=== PATIENT | female | born 1955 | race African-American/Black ===

== ENCOUNTER 2016-12-05 13:14 | Observation (INO) ==
[2016-12-05] MEDS ORDERED: ACETAMINOPHEN 325 MG TABLET PO PRN (15:44)
[2016-12-05] MEDS ORDERED: diphenhydrAMINE CAP 25 MG CAPSULE PO PRN (15:44)
[2016-12-05 16:48] VITALS: BP 136/80
[2016-12-05 17:09] LABS: Troponin I Only 0.066 NG/ML (0.00-0.045)
[2016-12-05] MEDS ORDERED: MAGNESIUM SULF RIDER 2 GM in PREMIX 1 EACH IV ONE (17:30)
[2016-12-05] MEDS ORDERED: POTASSIUM CHLORIDE 20 MEQ TABLET PO ONE (17:30)
--- NOTE | 2016-12-05 17:43 | Hospitalist History & Physical ---
<Mp Tompkins - Last Filed: 12/05/16 17:40> Assessment and Plan - Time spent with patient Time spent with patient: Greater than 30 minutes Time spent discussing smoking cessation with patient: 3 to 10 minutes (1) Elevated troponin I level Status: Acute Assessment and plan: Cardiac enzymes were elevated external facility. We will trend her troponins here. We will consult cardiology for possible stress test in a.m. (2) Chest pain Status: Acute Assessment and plan: Patient does not voice any current chest pain. However we will continue to monitor. 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 Patient is not currently anticoagulated. (4) Bradycardia Status: Acute (5) Tobacco abuse Status: Acute (6) Hypertension Status: Acute Assessment and plan: Continue home medications. History of Present Illness Chief complaint: chest pain History of present illness: Ms. Pablo is a 61 year old -[place] female who presents as a direct admit from [facility] for further evaluation of chest pain and elevated troponins. Per external facility records, the patient presented to [facility] last night with chest pain and was admitted for cardiac rule out. This morning, the patient's troponins were elevated trending 0.05-0.066. On exam here at [facility], the patient is lying awake, alert and oriented to person place and situation. She states that she had some leg pain, headache and a "little chest pain", other than that she is "good". Patient's speech is sporadic and diverting. She describes a lot of stress at home with her house situation as well as her children and grandchildren. She states that she feels as though the "Feds are out to get her". She denies current chest pain, pain on inspiration, shortness of breath, palpitations, syncopal events, lower extremity edema, and numbness or tingling. 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 We have accepted her to the hospital medicine service for further evaluation and cardiac rule out. We will consult cardiology for the possibility of stress test in a.m. Case has been discussed with Dr. Fontana, admitting physician. Patient is a full code. Home medications have been reviewed and reconciled per external facility records. Prior to completion of this note, the nurse alerted me that the patient has elected to leave AMA. Our plan was to proceed with a thorough cardiac workup including stress test and cardiology consultation. However, the patient has decided to leave against my recommendation. Home Medications Medication Instructions Recorded Confirmed Type ALPRAZolam [Alprazolam] 0.5 mg PO BID PRN 12/05/16 12/05/16 History Clopidogrel Bisulfate [Clopidogrel] 75 mg PO DAILY 12/05/16 12/05/16 History Hydrocodone/Acetaminophen 1 each PO Q4H PRN 12/05/16 12/05/16 History [Hydrocodon-Acetaminophn 10-325] cloNIDine HCl [Clonidine HCl] 0.2 mg PO BID 12/05/16 12/05/16 History hydroCHLOROthiazide 50 mg PO DAILY 12/05/16 12/05/16 History [Hydrochlorothiazide] metFORMIN [Glucophage] 250 mg PO BID W/MEALS 12/05/16 12/05/16 History Allergies Allergy/AdvReac Type Severity Reaction Status Date / Time No Known Allergies Allergy Verified 12/05/16 15:54 Medical,Surgical,& Family Hx - Medical History Cardio: History of: Hypertension Psychological: History of: Psychiatric Problems (undiagnosed but seems paranoid) Neurology: History of: Migraine, TIA Endocrine: History of: Diabetes Mellitus (IDDM), Dyslipidemia Respiratory: History of: Asthma Renal: History of: Renal Problems ("stent right kidney") Genitourinary: History of: Recurring Urinary Tract Infections Gastrointestinal: History of: GERD - Surgical History Cardiac Surgeries: Sugical HX of: Cardiac Catheterization Reproductive Surgeries: Surgical HX of;: Section - Social History Smoking Status: Current every day smoker Time spent discussing smoking cessation with patient: 3 to 10 minutes Frequency of Alcohol Use: None Type of Drug Use: None Marital Status: Single Lives With:: Children Functional capacity: uses cane/walker - Constitutional Constitutional: Absent: fatigue, fever(s), weakness - EENT Eyes: Absent: blurry vision, loss of vision - Cardiovascular Cardiovascular: Absent: chest pain at rest, chest pain with activity, dyspnea, edema - Respiratory Respiratory: Absent: cough, wheezing, pain on inspiration - Gastrointestinal Gastrointestinal: Absent: abdominal pain, nausea, vomiting - Genitourinary Genitourinary: Absent: dysuria, flank pain - Musculoskeletal Musculoskeletal: Present: arthralgias, other (leg pain) - Psychiatric Psychiatric: Present: difficulty concentrating - Endocrine Endocrine: Present: cold intolerance - Hematologic/Lymphatic Hematologic/Lymphatic: Absent: easy bleeding, easy bruising Exam - Constitutional Vitals: Period Temp Pulse Resp BP Sys/Haywood Pulse Ox Last 24 Hr 97.3 F 77 20 136/80 98 General appearance: normal weight, no acute distress - Head Head exam: Present: normal inspection, normocephalic, atraumatic - Eye Eye exam: Present: EOMI Pupils: Present: [place] - Neck Neck exam: Present: normal inspection. Absent: lymphadenopathy, tenderness - Respiratory Respiratory exam: Present: clear to auscultation bilaterally. Absent: rales, rhonchi, wheezes - Cardiovascular Cardiovascular exam: Present: bradycardia, irregular rhythm (atrial fibrillation ) - GI/Abdominal GI/Abdominal exam: Present: normal bowel sounds. Absent: distended, mass, tenderness, rebound - Extremities Exam Extremities exam: Present: normal inspection. Absent: calf tenderness, edema - Neurological Exam Neurological exam: Present: alert, oriented X3, reflexes normal - Psychiatric Psychiatric exam: Present: agitated, other (paranoid) - Skin Skin exam: Present: normal color, warm, dry, intact <White,Arin R - Last Filed: 12/05/16 21:08> Assessment and Plan (1) Atrial fibrillation Status: Acute (2) Chest pain Status: Acute (3) Elevated troponin I level Status: Acute (4) Hypertension Status: Acute (5) Tobacco abuse Status: Acute Assessment and plan: refused nicotine patch (6) Depression Status: Acute Assessment and plan: hostile, and quickly changes subjects. History of Present Illness History of present illness: Ms. Pablo is a 61 year old female seen and examined. Agree with above, poor historian, will not answer most of your questions, easily becomes hostile during interview. 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 Medical,Surgical,& Family Hx - Family History Family History: Denies;: Family Diabetes, Family Heart Disease Exam - Constitutional Vitals: Period Temp Pulse Resp BP Sys/Haywood Pulse Ox Last 24 Hr 97.3 F 77 20 136/80 98 - Eye Eye exam: Absent: scleral icterus Pupils: Present: normal accommodation - ENT ENT exam: Present: normal exam, normal external ear exam - Neurological Exam Neurological exam: Absent: motor sensory deficit Results - Labs Labs: labs reviewed need to be scanned in chart, elevated troponin of 0.06
[2016-12-05 17:45] LABS: PT Patient Result 10.9 SECS; Partial Thromboplastin Time 26.8 SECS (0-40)
[2016-12-05] MEDS ORDERED: POTASSIUM CHLORIDE INJ 40 MEQ in SODIUM CHLORIDE 0.45% 1,000 ML IV SCH (18:00)
[2016-12-05] MEDS ORDERED: cefTRIAXone 1,000 MG in SODIUM CHLORIDE 0.9% 100 ML IV SCH (18:00)
[2016-12-05 18:02] LABS: Alanine Aminotransferase 49 U/L (13-56); Albumin 3.5 G/DL (3.4-5.0); Alkaline Phosphatase 74 U/L (45-117); Aspartate Amino Transferase 26 U/L (0-37); Bilirubin,Indirect 0.3 MG/DL (0.0-1.0); Bilirubin,Total < 0.39 MG/DL (0.2-1.0); Total Protein 6.5 G/DL (6.4-8.3)
[2016-12-05] MEDS ORDERED: ALBUTEROL/IPRATROPIUM 3 ML NEB RESP TX SCH (19:00)
--- NOTE | 2016-12-05 21:19 | Discharge Summary ---
Hospital Course - Hospital Course Hospital Course: 61-year-old -Togol[place] female admitted for chest pain from [facility]. Patient had some mild elevation in her troponins. We have consulted cardiology to see her and recommend with her she needed a stress test. Patient' s family arrived and patient refused to stay. Family was informed the patient was in atrial fib and that she needed a cardiac workup for her elevated troponin. Family made aware of risk of heart attack and stroke. Patient signed out AMA and the family took her home. - Time spent with patient Time with patient DS: Less than 30 minutes Diagnosis - Discharge Diagnosis (1) Atrial fibrillation Status: Acute (2) Chest pain Status: Acute (3) Elevated troponin I level Status: Acute (4) Hypertension Status: Acute (5) Tobacco abuse Status: Acute (6) Depression Status: Acute Discharge Plan - Discharge Data Disposition: Left Against Medical Advice - Discharge Medications No Action Clopidogrel Bisulfate [Clopidogrel] 75 mg PO DAILY metFORMIN [Glucophage] 250 mg PO BID W/MEALS ALPRAZolam [Alprazolam] 0.5 mg PO BID PRN PRN Reason: Anxiety hydroCHLOROthiazide [Hydrochlorothiazide] 50 mg PO DAILY cloNIDine HCl [Clonidine HCl] 0.2 mg PO BID Hydrocodone/Acetaminophen [Hydrocodon-Acetaminophn 10-325] 1 each PO Q4H PRN PRN Reason: Pain - Follow Up or Referral - Forms/Instructions Exam - Constitutional Vitals: Period Temp Pulse Resp BP Sys/Haywood Pulse Ox Last 24 Hr 97.3 F 77 20 136/80 98 Discharge Results Labs on day of discharge: Labs from last 24 hours 12/05/16 12/05/16 12/05/16 16:05 16:03 16:03 INR 1.0 PT Patient/Control Mix 10.9 Circ Anticoag PTT 26.8 Total Bilirubin < 0.39 Direct Bilirubin 0.10 Indirect Bilirubin 0.3 AST 26 ALT 49 Alkaline Phosphatase 74 Total Creatine Kinase 146 CK-MB (CK-2) 1.7 Troponin I 0.066 H Total Protein 6.5 Albumin 3.5 DS: Provider Date of admission: 12/05/16 15:03 Primary care physician: Cheryl Arora MD Attending physician on admission: Cheryl Arora MD Consults: 12/05/16 15:54 Consult to Dietitian [CONS] Routine Reason for Dietitian: Other 12/05/16 15:59 Consult to Case Mgmt/Social Srvs [CONS] Routine Reason for Case Mgmt/Social Srvs: Psychiatric Management 12/05/16 17:28 Consult to Physician [CONS] Routine Comment: afib, la, positive troponins, crazy Consulting Provider: Edison Rene Discharging clinician: Arin Fontana MD
[2016-12-06] MEDS ORDERED: PANTOPRAZOLE 40 MG TABLET PO SCH (09:00)
== END 2016-12-05 18:25 | disposition left against medical advice (07) | DRG 203 ==
LOC: SUATTDRO 15:03 → N.TELEN 15:03 → INTOOBSV 15:03
PROVIDERS: ADMIT Family Medicine; ATTEND Internal Medicine

== ENCOUNTER 2017-04-26 08:21 | Inpatient (IN) ==
[2017-04-26] MEDS ORDERED: KETOROLAC 30 MG/1 ML VIAL IV STA (08:53)
[2017-04-26] MEDS ORDERED: KETOROLAC 30 MG/1 ML VIAL ONE (08:54)
[2017-04-26 10:01] LABS: Alanine Aminotransferase 17 U/L (13-56); Albumin 3.4 G/DL (3.4-5.0); Alkaline Phosphatase 105 U/L (45-117); Aspartate Amino Transferase 11 U/L (0-37); Bilirubin,Total < 0.39 MG/DL (0.2-1.0); Blood Urea Nitrogen 12 MG/DL (7-18); Calcium 8.9 MG/DL (8.5-10.1); Glucose 78 MG/DL (74-106); Osmolality,Calculated 273.7 MOS/KG (273-304); Potassium 3.9 MMOL/L (3.5-5.1); Sodium 138 MMOL/L (136-145); Total Protein 7.2 G/DL (6.4-8.3)
[2017-04-26 10:04] LABS: Troponin I Only 0.088 NG/ML (0.00-0.045)
[2017-04-26] MEDS ORDERED: ASPIRIN 325 MG TABLET PO STA (10:22)
[2017-04-26] MEDS ORDERED: NITROGLYCERIN SL 0.4 MG TABLET SL STA (10:22)
[2017-04-26] MEDS ORDERED: ENOXAPARIN 40 MG/0.4 ML SYRINGE SUBCUT STA (10:23)
[2017-04-26] MEDS ORDERED: ONDANSETRON 4 MG/2 ML VIAL IV PRN (11:06)
[2017-04-26] MEDS ORDERED: MAGNESIUM SULF RIDER 4 GM in PREMIX 1 EACH IV PRN (11:06)
[2017-04-26] MEDS ORDERED: MAGNESIUM SULF RIDER 2 GM in PREMIX 1 EACH IV PRN (11:06)
[2017-04-26] MEDS ORDERED: DEXTROSE 50% 25 GM/50 ML VIAL IV PRN (11:06)
[2017-04-26] MEDS ORDERED: POTASSIUM CHLORIDE 20 MEQ TABLET PO PRN (11:06)
[2017-04-26] MEDS ORDERED: GLUCAGON 1 MG VIAL IM PRN (11:06)
[2017-04-26] MEDS ORDERED: ALPRAZolam 0.5 MG TABLET PO PRN (11:10)
[2017-04-26] MEDS ORDERED: NON-FORMULARY MEDICATION (Albuterol Inhaler 2 PUFF) INH PRN (11:10)
[2017-04-26] MEDS ORDERED: NITROGLYCERIN SL 0.4 MG TABLET SL PRN (11:10)
[2017-04-26] MEDS ORDERED: ALBUTEROL 2.5 MG/3 ML NEB RESP TX PRN (11:10)
[2017-04-26] MEDS: INSULIN REGULAR 100 UNIT/ML SUBCUT SCH ×3 (13:52→20:55)
[2017-04-26] MEDS: NICOTINE 14 MG/24 HR PATCH TRANSDERM SCH ×2 (13:57→14:44)
[2017-04-26] MEDS: NITROGLYCERIN 2% OINT 1 INCH/GM PACK TOP SCH ×3 (14:45→23:31)
[2017-04-26] MEDS: SODIUM CHLORIDE 0.45% 1,000 ML IV SCH (14:46)
[2017-04-26] MEDS: metFORMIN 500 MG TABLET PO SCH (18:29)
[2017-04-26] MEDS: ATORVASTATIN 20 MG TABLET PO SCH (20:54)
[2017-04-26] MEDS: BUDESONIDE/FORMOTEROL 160-4.5 INHALER 6 GM INH SCH (20:54)
[2017-04-26] MEDS: CARVEDILOL 3.125 MG TABLET PO SCH (20:55)
[2017-04-27] MEDS: MORPHINE 2 MG/1 ML SYRINGE IV PRN ×3 (02:45→21:32)
[2017-04-27 05:41] LABS: Basophils % 0.5 % (0.0-0.8); Eosinophils # 0.1 10*3/uL (0.0-0.87); Eosinophils % 0.9 % (0.00-10.9); Hemoglobin 13.2 GM/DL (12.0-16.0); Immature Granulocytes % 0.4 %; Immature Granulocytes Absolute 0.03 #; Lymphocytes # 2.3 10*3/uL (1.4-4.0); Lymphocytes % 27.6 % (21.3-54.2); Mean Corpuscular HGB Conc 34.7 GM/DL (32-36); Mean Corpuscular Hemoglobin 32 PG (27-34); Mean Corpuscular Volume 92.9 FL (87-102); Mean Platelet Volume 10.2 FL (9.6-12.0); Monocytes # 0.5 10*3/uL (0.11-0.8); Monocytes % 6.4 % (1.7-12.7); Neutrophils # 5.3 10*3/uL (1.4-7.4); Neutrophils % 64.2 % (38.7-73.9); Platelet Count 347 T/CUMM (130-400); Red Blood Count 4.09 MC/CUMM (3.8-5.5); Red Cell Distribution Width 12.6 % (9.3-17.3); White Blood Count 8.2 T/CUMM (4-12)
[2017-04-27] MEDS: NITROGLYCERIN 2% OINT 1 INCH/GM PACK TOP SCH ×3 (06:01→18:18)
[2017-04-27 06:16] LABS: Osmolality,Calculated 278.7 MOS/KG (273-304); Potassium 4.3 MMOL/L (3.5-5.1); Risk Ratio 2.01; VLDL CHOLESTEROL 20.6 MG/DL
[2017-04-27] MEDS: INSULIN REGULAR 100 UNIT/ML SUBCUT SCH ×4 (08:14→22:17)
[2017-04-27] MEDS ORDERED: ASPIRIN EC 325 MG TABLET PO SCH (09:00)
[2017-04-27] MEDS: ENOXAPARIN 40 MG/0.4 ML SYRINGE SUBCUT SCH ×2 (10:04→21:31)
[2017-04-27] MEDS: hydroCHLOROthiazide 25 MG TABLET PO SCH (10:05)
[2017-04-27] MEDS: NICOTINE 14 MG/24 HR PATCH TRANSDERM SCH (10:05)
[2017-04-27] MEDS: CLOPIDOGREL 75 MG TABLET PO SCH (10:05)
[2017-04-27] MEDS: PANTOPRAZOLE 40 MG TABLET PO SCH (10:06)
[2017-04-27] MEDS: ASPIRIN CHEW 81 MG TABLET PO SCH (10:06)
[2017-04-27] MEDS: CARVEDILOL 3.125 MG TABLET PO SCH ×2 (10:06→16:12)
[2017-04-27] MEDS: BUDESONIDE/FORMOTEROL 160-4.5 INHALER 6 GM INH SCH ×2 (10:06→22:17)
[2017-04-27] MEDS: cloNIDine 0.1 MG TABLET PO SCH (10:06)
[2017-04-27] MEDS: metFORMIN 500 MG TABLET PO SCH ×2 (10:06→16:12)
[2017-04-27] MEDS: SODIUM CHLORIDE 0.45% 1,000 ML IV SCH (16:12)
[2017-04-27] MEDS ORDERED: ENOXAPARIN 40 MG/0.4 ML SYRINGE SUBCUT SCH (21:00)
[2017-04-27] MEDS: ATORVASTATIN 20 MG TABLET PO SCH (21:32)
[2017-04-28] MEDS: NITROGLYCERIN 2% OINT 1 INCH/GM PACK TOP SCH ×4 (01:37→17:25)
[2017-04-28] MEDS ORDERED: MAGNESIUM SULF RIDER 2 GM in PREMIX 1 EACH IV PRN (06:04)
[2017-04-28] MEDS ORDERED: DIAZEPAM 5 MG TABLET PO ONE (06:04)
[2017-04-28] MEDS ORDERED: POTASSIUM CHLORIDE RIDER 10 MEQ in PREMIX 1 EACH IV PRN (06:04)
[2017-04-28] MEDS ORDERED: diphenhydrAMINE CAP 25 MG CAPSULE PO ONE (06:04)
[2017-04-28] MEDS ORDERED: LIDOCAINE 2%/EPI 20 ML VIAL ONE (06:52)
[2017-04-28] MEDS ORDERED: HEPARIN/NACL 0.9% 2 UNITS/ML 2,000 ML IV ONE (06:52)
[2017-04-28] MEDS: CLOPIDOGREL 75 MG TABLET PO SCH ×2 (07:03→10:53)
[2017-04-28] MEDS: ASPIRIN CHEW 81 MG TABLET PO SCH ×2 (07:04→09:23)
[2017-04-28] MEDS: PANTOPRAZOLE 40 MG TABLET PO SCH (09:19)
[2017-04-28] MEDS: hydroCHLOROthiazide 25 MG TABLET PO SCH (09:19)
[2017-04-28] MEDS: CARVEDILOL 3.125 MG TABLET PO SCH ×2 (09:20→16:55)
[2017-04-28] MEDS: cloNIDine 0.1 MG TABLET PO SCH (09:20)
[2017-04-28] MEDS: NICOTINE 14 MG/24 HR PATCH TRANSDERM SCH (09:20)
[2017-04-28] MEDS: INSULIN REGULAR 100 UNIT/ML SUBCUT SCH ×4 (09:21→21:43)
[2017-04-28] MEDS: BUDESONIDE/FORMOTEROL 160-4.5 INHALER 6 GM INH SCH ×2 (09:22→21:11)
[2017-04-28] MEDS: SODIUM CHLORIDE 0.45% 1,000 ML IV SCH (09:23)
[2017-04-28] MEDS: metFORMIN 500 MG TABLET PO SCH ×2 (09:24→16:55)
[2017-04-28] MEDS: ENOXAPARIN 40 MG/0.4 ML SYRINGE SUBCUT SCH ×2 (10:58→22:08)
[2017-04-28] MEDS: ATORVASTATIN 20 MG TABLET PO SCH (21:11)
[2017-04-29] MEDS: NITROGLYCERIN 2% OINT 1 INCH/GM PACK TOP SCH ×4 (02:23→17:11)
[2017-04-29] MEDS: SODIUM CHLORIDE 0.45% 1,000 ML IV SCH (04:07)
[2017-04-29 06:06] LABS: Basophils # 0.1 10*3/uL (0.0-0.2); Basophils % 0.6 % (0.0-0.8); Eosinophils # 0.1 10*3/uL (0.0-0.87); Hematocrit 40.8 VOL% (35.7-47.0); Hemoglobin 13.7 GM/DL (12.0-16.0); Immature Granulocytes % 0.3 %; Immature Granulocytes Absolute 0.02 #; Lymphocytes % 37.7 % (21.3-54.2); Mean Corpuscular HGB Conc 33.6 GM/DL (32-36); Mean Corpuscular Hemoglobin 32 PG (27-34); Mean Corpuscular Volume 94.2 FL (87-102); Mean Platelet Volume 10.1 FL (9.6-12.0); Monocytes # 0.6 10*3/uL (0.11-0.8); Monocytes % 7.6 % (1.7-12.7); Neutrophils # 4.2 10*3/uL (1.4-7.4); Neutrophils % 52.8 % (38.7-73.9); Platelet Count 363 T/CUMM (130-400); Red Blood Count 4.33 MC/CUMM (3.8-5.5); Red Cell Distribution Width 12.4 % (9.3-17.3); White Blood Count 7.9 T/CUMM (4-12)
[2017-04-29 06:14] LABS: PT Patient Result 10.8 SECS
[2017-04-29 06:37] LABS: Calcium 9.8 MG/DL (8.5-10.1)
[2017-04-29 06:38] LABS: Osmolality,Calculated 276.5 MOS/KG (273-304)
[2017-04-29] MEDS ORDERED: diphenhydrAMINE CAP 25 MG CAPSULE PO ONE (07:19)
[2017-04-29] MEDS ORDERED: DIAZEPAM 5 MG TABLET PO ONE (07:19)
[2017-04-29] MEDS ORDERED: LIDOCAINE 2%/EPI 20 ML VIAL ONE (07:23)
[2017-04-29] MEDS ORDERED: HEPARIN/NACL 0.9% 2 UNITS/ML 2,000 ML IV ONE (07:23)
[2017-04-29] MEDS: ENOXAPARIN 40 MG/0.4 ML SYRINGE SUBCUT SCH ×3 (07:28→21:30)
[2017-04-29] MEDS: ASPIRIN CHEW 81 MG TABLET PO SCH ×2 (07:28→08:22)
[2017-04-29] MEDS: cloNIDine 0.1 MG TABLET PO SCH ×2 (07:28→08:22)
[2017-04-29] MEDS: CARVEDILOL 3.125 MG TABLET PO SCH ×2 (07:28→16:15)
[2017-04-29] MEDS: CLOPIDOGREL 75 MG TABLET PO SCH ×2 (07:28→08:23)
[2017-04-29] MEDS: PANTOPRAZOLE 40 MG TABLET PO SCH ×2 (07:28→08:23)
[2017-04-29] MEDS: metFORMIN 500 MG TABLET PO SCH ×2 (07:32→16:14)
[2017-04-29] MEDS: INSULIN REGULAR 100 UNIT/ML SUBCUT SCH ×4 (07:32→21:31)
[2017-04-29] MEDS ORDERED: MIDAZOLAM 2 MG/2 ML VIAL ONE (07:53)
[2017-04-29] MEDS ORDERED: fentaNYL 100 MCG/2 ML VIAL ONE (07:54)
[2017-04-29] MEDS: NICOTINE 14 MG/24 HR PATCH TRANSDERM SCH ×2 (08:22→09:22)
[2017-04-29] MEDS: hydroCHLOROthiazide 25 MG TABLET PO SCH (08:22)
[2017-04-29] MEDS: BUDESONIDE/FORMOTEROL 160-4.5 INHALER 6 GM INH SCH ×2 (09:22→20:56)
[2017-04-29] MEDS ORDERED: CEFUROXIME INJ 1,500 MG in SYRINGE 1 EACH IV ONE (12:23)
[2017-04-29] MEDS: CHLORHEXIDINE 4% SOLN 118 ML BOTTLE TOP SCH (15:00)
[2017-04-29] MEDS: SODIUM CHLORIDE 0.9% 1,000 ML IV SCH (15:01)
[2017-04-29] MEDS: ATORVASTATIN 20 MG TABLET PO SCH (20:55)
[2017-04-29] MEDS: RANOLAZINE 500 MG TABLET PO SCH (20:55)
[2017-04-29] MEDS ORDERED: CHLORHEXIDINE 0.12% ORAL RINSE 60 ML BOTTLE SWISH/SPIT SCH (21:00)
[2017-04-30] MEDS: NITROGLYCERIN 2% OINT 1 INCH/GM PACK TOP SCH ×2 (02:13→07:15)
[2017-04-30] MEDS ORDERED: CEFUROXIME INJ 1,500 MG in SYRINGE 1 EACH IV ONE (06:00)
[2017-04-30] MEDS: INSULIN REGULAR 100 UNIT/ML SUBCUT SCH ×4 (10:41→20:29)
[2017-04-30] MEDS: ENOXAPARIN 40 MG/0.4 ML SYRINGE SUBCUT SCH (10:46)
[2017-04-30] MEDS: hydroCHLOROthiazide 25 MG TABLET PO SCH (10:47)
[2017-04-30] MEDS: NICOTINE 14 MG/24 HR PATCH TRANSDERM SCH (10:47)
[2017-04-30] MEDS: PANTOPRAZOLE 40 MG TABLET PO SCH (10:48)
[2017-04-30] MEDS: RANOLAZINE 500 MG TABLET PO SCH ×2 (10:48→21:02)
[2017-04-30] MEDS: cloNIDine 0.1 MG TABLET PO SCH (10:49)
[2017-04-30] MEDS: metFORMIN 500 MG TABLET PO SCH ×2 (10:49→19:11)
[2017-04-30] MEDS: ASPIRIN CHEW 81 MG TABLET PO SCH (10:52)
[2017-04-30] MEDS: CARVEDILOL 6.25 MG TABLET PO SCH ×2 (10:52→19:11)
[2017-04-30] MEDS: BUDESONIDE/FORMOTEROL 160-4.5 INHALER 6 GM INH SCH ×2 (10:57→21:02)
[2017-04-30] MEDS ORDERED: NITROGLYCERIN 2% OINT 1 INCH/GM PACK TOP SCH (11:06)
[2017-04-30] MEDS: SODIUM CHLORIDE 0.9% 1,000 ML IV SCH (13:01)
[2017-04-30] MEDS: NITROGLYCERIN DRIP 50 MG/250 ML BOTTLE IV SCH (14:39)
[2017-04-30] MEDS: HEPARIN DRIP 25,000 UNITS/500 ML PREMIX IV SCH (16:09)
[2017-04-30] MEDS ORDERED: SODIUM CHLORIDE 0.9% 1,000 ML IV PRN (16:22)
[2017-04-30] MEDS: ATORVASTATIN 20 MG TABLET PO SCH (21:02)
[2017-04-30] MEDS ORDERED: HEPARIN 5,000 UNIT/1 ML VIAL SUBCUT ONE (23:33)
[2017-05-01 05:07] LABS: Basophils # 0.1 10*3/uL (0.0-0.2); Basophils % 0.6 % (0.0-0.8); Eosinophils # 0.2 10*3/uL (0.0-0.87); Eosinophils % 2.3 % (0.00-10.9); Hematocrit 36.4 VOL% (35.7-47.0); Hemoglobin 12.8 GM/DL (12.0-16.0); Immature Granulocytes % 0.3 %; Immature Granulocytes Absolute 0.03 #; Lymphocytes # 2.5 10*3/uL (1.4-4.0); Lymphocytes % 25.6 % (21.3-54.2); Mean Corpuscular HGB Conc 35.2 GM/DL (32-36); Mean Corpuscular Hemoglobin 33 PG (27-34); Mean Corpuscular Volume 92.4 FL (87-102); Monocytes # 0.7 10*3/uL (0.11-0.8); Monocytes % 7.2 % (1.7-12.7); Neutrophils # 6.3 10*3/uL (1.4-7.4); Platelet Count 329 T/CUMM (130-400); Red Blood Count 3.94 MC/CUMM (3.8-5.5); Red Cell Distribution Width 12.4 % (9.3-17.3); White Blood Count 9.9 T/CUMM (4-12)
[2017-05-01 06:04] LABS: Osmolality,Calculated 278.5 MOS/KG (273-304); Potassium 3.9 MMOL/L (3.5-5.1)
[2017-05-01] MEDS ORDERED: CEFUROXIME INJ 1,500 MG in SYRINGE 1 EACH IV ONE ×2 (08:19→12:00)
[2017-05-01] MEDS: CARVEDILOL 6.25 MG TABLET PO SCH (08:20)
[2017-05-01] MEDS ORDERED: VANCOMYCIN 1,000 MG VIAL ONE (08:23)
[2017-05-01] MEDS ORDERED: PAPAVERINE 60 MG/2 ML VIAL ONE (08:23)
[2017-05-01] MEDS ORDERED: CEFUROXIME 1,500 MG VIAL ONE (08:24)
[2017-05-01] MEDS ORDERED: SODIUM CHLORIDE 0.9% 1,000 ML IV SCH (08:30)
[2017-05-01] MEDS: metFORMIN 500 MG TABLET PO SCH (08:45)
[2017-05-01] MEDS: INSULIN REGULAR 100 UNIT/ML SUBCUT SCH ×2 (08:45→11:01)
[2017-05-01] MEDS: cloNIDine 0.1 MG TABLET PO SCH (08:47)
[2017-05-01] MEDS: ASPIRIN CHEW 81 MG TABLET PO SCH (08:47)
[2017-05-01] MEDS: NICOTINE 14 MG/24 HR PATCH TRANSDERM SCH (08:48)
[2017-05-01] MEDS: hydroCHLOROthiazide 25 MG TABLET PO SCH (08:48)
[2017-05-01] MEDS ORDERED: TRANEXAMIC ACID 1,000 MG/10 ML VIAL IV ONE (08:48)
[2017-05-01] MEDS: BUDESONIDE/FORMOTEROL 160-4.5 INHALER 6 GM INH SCH (08:49)
[2017-05-01] MEDS: RANOLAZINE 500 MG TABLET PO SCH (08:49)
[2017-05-01] MEDS: PANTOPRAZOLE 40 MG TABLET PO SCH (08:49)
[2017-05-01] MEDS ORDERED: CHLORHEXIDINE 4% SOLN 118 ML BOTTLE TOP SCH ×2 (09:00)
[2017-05-01] MEDS ORDERED: CHLORHEXIDINE 0.12% ORAL RINSE 60 ML BOTTLE SWISH/SPIT SCH ×2 (09:00)
[2017-05-01] MEDS ORDERED: POTASSIUM CHLORIDE RIDER 100 ML IV ONE (09:07)
[2017-05-01] MEDS ORDERED: ALBUMIN 5% 12.5 GM/250 ML VIAL IV ONE (09:11)
[2017-05-01] MEDS ORDERED: SODIUM BICARBONATE 50 MEQ/50 ML SYRINGE IV ONE ×2 (09:11→14:54)
[2017-05-01 10:30] LABS: ABG Base Excess -0.9 MMOL/L (-2.5-2.5); ABG HCO3 23.7 MMOL/L (20-26); ABG PCO2 29.9 MM HG (35-48); ABG PH 7.473 (7.35-7.45); ABG TCO2 19.6 MMOL/L (23-27); Glucose Heart Surgery 144 MG/DL (74-106); Hematocrit Heart Surgery 33.6 PERCENT (37-47); Hemoglobin Heart Surgery 10.9 G/DL (12.0-16.0); Ionized Calcium Arterial 1.14 MMOL/L (1.21-1.46); PCO2 Patient Temp Arterial 29.9 MMHG; PH Patient Temp Arterial 7.473; Patient Temperature 37 CELCIUS; Potassium Heart/CVR 3.2 MMOL/L (3.5-5.1); Sodium Heart/CVR 135 MMOL/L (135-145)
[2017-05-01] MEDS ORDERED: TISSUE ADHESIVE 1 EACH APPLICATOR TOP ONE (10:49)
[2017-05-01 11:04] LABS: Apearance,Urine Slightly Hazy (Clear); Bilirubin,Urine Negative (Negative); Blood, Urine Large mg/dL (Negative); Glucose,Urine (UA) Negative (Negative); Ketones,Urine Negative (Negative); Nitrite,Urine Negative (Negative); Protein,Urine 30 MG/DL; RBC,Urine 1933 /HPF (0-4); Squamous Epithelial Cell,Urine Occasional /HPF (0-10); Urine Color Yellow (Yellow); Urine Urobilinogen < 2.0 EU/DL (0.2-1.0); WBC,Urine 6 /HPF (0-6)
[2017-05-01 11:42] LABS: Hematocrit Heart Surgery 21.4 PERCENT (37-47); Hemoglobin Heart Surgery 6.9 G/DL (12.0-16.0); PCO2 Patient Temp Venous 34.7 MM HG; PH Patient Temp Venous 7.458; PO2 Patient Temp Venous 43.3 MM HG; Potassium Heart/CVR 4.5 MMOL/L (3.5-5.1); VBG Base Excess 0.9 MEQ/L (0-4); VBG Oxygen Saturation 80.7 %; VBG PCO2 34.7 MMHG (41-51); VBG PH 7.458; VBG PO2 43.3 MMHG (17-40)
[2017-05-01] MEDS ORDERED: INSULIN REGULAR 100 UNIT/ML ONE (11:58)
[2017-05-01 12:17] LABS: Hematocrit Heart Surgery 26.5 PERCENT (37-47); Hemoglobin Heart Surgery 8.5 G/DL (12.0-16.0); PCO2 Patient Temp Venous 30.6 MM HG; PH Patient Temp Venous 7.488; Potassium Heart/CVR 4.4 MMOL/L (3.5-5.1); VBG Base Excess 0.3 MEQ/L (0-4); VBG HCO3 24.6 MEQ/L (24-28); VBG Oxygen Saturation 85.9 %; VBG PCO2 30.6 MMHG (41-51); VBG PH 7.488
[2017-05-01] MEDS ORDERED: DOBUTamine 500 MG/250 ML PREMIX IV ONE (12:17)
[2017-05-01 13:13] LABS: ABG Base Excess -0.9 MMOL/L (-2.5-2.5); ABG HCO3 23.4 MMOL/L (20-26); ABG Oxygen Saturation 98.6 % (95-100); ABG PH 7.418 (7.35-7.45); ABG PO2 236.7 MM HG (80-95); ABG TCO2 24.5 MMOL/L (23-27); Glucose Heart Surgery 119 MG/DL (74-106); Hemoglobin Heart Surgery 9.6 G/DL (12.0-16.0); Ionized Calcium Arterial 1.09 MMOL/L (1.21-1.46); PH Patient Temp Arterial 7.418; PO2 Patient Temp Arterial 236.7 MM HG; Patient Temperature 37 CELCIUS; Potassium Heart/CVR 3.1 MMOL/L (3.5-5.1); Sodium Heart/CVR 137 MMOL/L (135-145)
[2017-05-01] MEDS ORDERED: PHENYLEPHRINE DRIP 40 MG/250 ML PREMIX IV ONE (13:46)
[2017-05-01] MEDS: SODIUM CHLORIDE 0.45% 1,000 ML IV SCH ×2 (14:00)
[2017-05-01] MEDS ORDERED: SUFentanil 250 MCG/5 ML AMP ONE (14:19)
[2017-05-01] MEDS ORDERED: MIDAZOLAM 10 MG/2 ML VIAL ONE (14:20)
[2017-05-01] MEDS ORDERED: CALCIUM CHLORIDE 1,000 MG/10 ML VIAL IV ONE (14:24)
[2017-05-01] MEDS ORDERED: SEVOFLURANE 1 UNIT/15 MINUTE INH ONE (14:24)
[2017-05-01] MEDS ORDERED: HEPARIN/NACL 0.9% 2 UNITS/ML 1,000 ML IV ONE (14:24)
[2017-05-01] MEDS ORDERED: EPINEPHrine 1 MG/ML VIAL ONE (14:24)
[2017-05-01] MEDS ORDERED: MINERAL OIL/PETROLATUM OPH OINT 3.5 GM TUBE ONE (14:25)
[2017-05-01] MEDS ORDERED: VECURONIUM 10 MG VIAL IV ONE (14:25)
[2017-05-01] MEDS ORDERED: ETOMIDATE 40 MG/20 ML VIAL IV ONE (14:25)
[2017-05-01] MEDS ORDERED: ESMOLOL 100 MG/10 ML VIAL IV ONE (14:26)
[2017-05-01] MEDS ORDERED: LACTATED RINGERS 1,000 ML IV ONE (14:26)
[2017-05-01] MEDS ORDERED: SODIUM CHLORIDE 0.9% 1,000 ML IV ONE (14:26)
[2017-05-01] MEDS ORDERED: NITROGLYCERIN DRIP 50 MG/250 ML BOTTLE IV ONE (14:26)
[2017-05-01] MEDS ORDERED: PHENYLEPHRINE DRIP 20 MG/250 ML PREMIX IV ONE ×2 (14:26→14:54)
[2017-05-01] MEDS ORDERED: SODIUM CHLORIDE 0.9% 250 ML IV ONE (14:26)
[2017-05-01] MEDS ORDERED: SODIUM CHLORIDE 0.9% 200 ML IV ONE (14:26)
[2017-05-01] MEDS: NITROGLYCERIN DRIP 50 MG/250 ML BOTTLE IV SCH ×2 (14:30→17:56)
[2017-05-01] MEDS ORDERED: MAGNESIUM SULF RIDER 2 GM in PREMIX 1 EACH IV PRN (14:45)
[2017-05-01] MEDS ORDERED: POTASSIUM CHLORIDE RIDER 20 MEQ in PREMIX 1 EACH IV PRN (14:45)
[2017-05-01] MEDS ORDERED: CHLORHEXIDINE 4% SOLN 118 ML BOTTLE TOP PRN (14:45)
[2017-05-01] MEDS ORDERED: ACETAMINOPHEN 650 MG SUPP RECTAL PRN (14:45)
[2017-05-01] MEDS ORDERED: INSULIN REGULAR 100 UNIT/ML IV PRN (14:45)
[2017-05-01] MEDS ORDERED: CALCIUM CHLORIDE 1,000 MG/10 ML SYRINGE IV PRN (14:45)
[2017-05-01] MEDS ORDERED: MAGNESIUM SULF RIDER 4 GM in PREMIX 1 EACH IV PRN (14:45)
[2017-05-01] MEDS ORDERED: SODIUM CHLORIDE 0.9% 250 ML IV PRN (14:45)
[2017-05-01] MEDS ORDERED: POTASSIUM CHLORIDE RIDER 10 MEQ in PREMIX 1 EACH IV PRN (14:45)
[2017-05-01] MEDS ORDERED: DEXTROSE 50% 25 GM/50 ML VIAL IV PRN (14:45)
[2017-05-01 14:51] LABS: ABG Base Excess 1.1 MMOL/L (-2.5-2.5); ABG HCO3 27.1 MMOL/L (20-26); ABG Oxygen Saturation 96.4 % (95-100); ABG PCO2 49.1 MM HG (35-48); ABG PH 7.359 (7.35-7.45); ABG PO2 92.9 MM HG (80-95); ABG TCO2 28.6 MMOL/L (23-27); Glucose Heart Surgery 61 MG/DL (74-106); Hemoglobin Heart Surgery 11.5 G/DL (12.0-16.0); Potassium Heart/CVR 3.5 MMOL/L (3.5-5.1)
[2017-05-01 14:54] LABS: Basophils % 0.2 % (0.0-0.8); Eosinophils # 0.1 10*3/uL (0.0-0.87); Eosinophils % 0.5 % (0.00-10.9); Hematocrit 26.7 VOL% (35.7-47.0); Hemoglobin 9.2 GM/DL (12.0-16.0); Immature Granulocytes % 0.7 %; Immature Granulocytes Absolute 0.09 #; Lymphocytes % 7.9 % (21.3-54.2); Mean Corpuscular HGB Conc 34.5 GM/DL (32-36); Mean Corpuscular Hemoglobin 32 PG (27-34); Mean Platelet Volume 10.2 FL (9.6-12.0); Monocytes # 0.7 10*3/uL (0.11-0.8); Monocytes % 5.5 % (1.7-12.7); Neutrophils # 11.1 10*3/uL (1.4-7.4); Neutrophils % 85.2 % (38.7-73.9); Platelet Count 256 T/CUMM (130-400); Red Blood Count 2.87 MC/CUMM (3.8-5.5); Red Cell Distribution Width 14.2 % (9.3-17.3)
[2017-05-01] MEDS ORDERED: PROTAMINE SULFATE 250 MG/25 ML VIAL IV ONE (14:54)
[2017-05-01] MEDS ORDERED: ALBUMIN 25% 25 GM/100 ML VIAL IV ONE (14:54)
[2017-05-01] MEDS ORDERED: DEXTROSE 5% KCL 20 MEQ 20 MEQ/1,000 ML BAG IV ONE (14:54)
[2017-05-01] MEDS ORDERED: methylPREDNISolone SOD SUC 1,000 MG/8 ML VIAL ONE (14:54)
[2017-05-01] MEDS ORDERED: HEPARIN 10,000 UNIT/10 ML VIAL ONE (14:54)
[2017-05-01] MEDS ORDERED: MAGNESIUM SULFATE 1 GM/2 ML VIAL ONE (14:54)
[2017-05-01] MEDS ORDERED: POTASSIUM CHLORIDE 20 MEQ/10 ML VIAL ONE (14:55)
[2017-05-01] MEDS ORDERED: FUROSEMIDE 20 MG/2 ML VIAL ONE (14:55)
[2017-05-01] MEDS ORDERED: MANNITOL 12.5 GM/50 ML VIAL IV ONE (14:55)
[2017-05-01 15:02] LABS: VBG Base Excess 3.6 MEQ/L (0-4); VBG HCO3 30.3 MEQ/L (24-28); VBG Oxygen Saturation 66.9 %; VBG PCO2 56.4 MMHG (41-51); VBG PH 7.348
[2017-05-01 15:03] LABS: INR 1.2; PT Patient Result 12.1 SECS; Partial Thromboplastin Time 29.1 SECS (0-40)
[2017-05-01 15:07] LABS: Calcium 8.7 MG/DL (8.5-10.1)
[2017-05-01 15:08] LABS: Blood Urea Nitrogen 13 MG/DL (7-18); Glucose 62 MG/DL (74-106); Osmolality,Calculated 280.1 MOS/KG (273-304); Potassium 3.7 MMOL/L (3.5-5.1); Sodium 142 MMOL/L (136-145)
[2017-05-01] MEDS ORDERED: NITROPRUSSIDE 50 MG/2 ML VIAL ONE (15:11)
[2017-05-01 15:12] LABS: Lactic Acid 3.4 MMOL/L (0.4-2.0)
[2017-05-01] MEDS: DEXTROSE 50% 25 GM/50 ML VIAL IV PRN (15:27)
[2017-05-01] MEDS: MORPHINE 2 MG/1 ML SYRINGE IV PRN ×2 (15:30→15:45)
[2017-05-01] MEDS ORDERED: METOPROLOL TARTRATE 5 MG/5 ML VIAL IV ONE (15:49)
[2017-05-01] MEDS: NITROPRUSSIDE 100 MG in DEXTROSE 5% 250 ML IV SCH (16:04)
[2017-05-01] MEDS: MIDAZOLAM 2 MG/2 ML VIAL IV PRN (16:04)
[2017-05-01] MEDS: INSULIN REGULAR DRIP 100 ML IV SCH (17:29)
[2017-05-01] MEDS: SODIUM CHLORIDE 0.9% 1,000 ML IV SCH (17:55)
[2017-05-01] MEDS: HEPARIN DRIP 25,000 UNITS/500 ML PREMIX IV SCH (17:56)
[2017-05-01] MEDS: ALBUTEROL 2.5 MG/3 ML NEB RESP TX SCH (18:24)
[2017-05-01 18:31] LABS: ABG Base Excess 3.2 MMOL/L (-2.5-2.5); ABG Oxygen Saturation 95.1 % (95-100); ABG PH 7.422 (7.35-7.45); ABG PO2 76.8 MM HG (80-95); ABG TCO2 29.4 MMOL/L (23-27); Glucose Heart Surgery 134 MG/DL (74-106); Hemoglobin Heart Surgery 10.8 G/DL (12.0-16.0); Ionized Calcium Arterial 1.11 MMOL/L (1.21-1.46); PH Patient Temp Arterial 7.422; PO2 Patient Temp Arterial 76.8 MM HG; Patient Temperature 37 CELCIUS; Potassium Heart/CVR 3.9 MMOL/L (3.5-5.1); Sodium Heart/CVR 137 MMOL/L (135-145)
[2017-05-01] MEDS: MORPHINE 10 MG/1 ML VIAL IV PRN ×2 (19:01→22:01)
[2017-05-01 20:06] LABS: ABG Base Excess 2.8 MMOL/L (-2.5-2.5); ABG HCO3 27.1 MMOL/L (20-26); ABG Oxygen Saturation 86.5 % (95-100); ABG PCO2 40.5 MM HG (35-48); ABG PH 7.444 (7.35-7.45); ABG PO2 48.7 MM HG (80-95); ABG TCO2 28.4 MMOL/L (23-27); Glucose Heart Surgery 144 MG/DL (74-106); Hemoglobin Heart Surgery 10.7 G/DL (12.0-16.0); Potassium Heart/CVR 3.8 MMOL/L (3.5-5.1)
[2017-05-01] MEDS: CHLORHEXIDINE 0.12% ORAL RINSE 60 ML BOTTLE SWISH/SPIT SCH (22:00)
[2017-05-01] MEDS: CEFUROXIME INJ 1,500 MG in SYRINGE 1 EACH IV SCH (22:00)
[2017-05-02] MEDS: ALBUTEROL 2.5 MG/3 ML NEB RESP TX SCH ×7 (00:14→23:57)
[2017-05-02] MEDS: ONDANSETRON 4 MG/2 ML VIAL IV PRN (00:25)
[2017-05-02] MEDS: MORPHINE 10 MG/1 ML VIAL IV PRN ×2 (00:26→04:28)
[2017-05-02 02:11] LABS: Basophils % 0.1 % (0.0-0.8); Hematocrit 30.4 VOL% (35.7-47.0); Hemoglobin 10.2 GM/DL (12.0-16.0); Immature Granulocytes % 0.6 %; Immature Granulocytes Absolute 0.09 #; Lymphocytes % 5.9 % (21.3-54.2); Mean Corpuscular HGB Conc 33.6 GM/DL (32-36); Mean Corpuscular Hemoglobin 31 PG (27-34); Mean Corpuscular Volume 92.1 FL (87-102); Mean Platelet Volume 10.1 FL (9.6-12.0); Monocytes # 0.8 10*3/uL (0.11-0.8); Monocytes % 4.9 % (1.7-12.7); Neutrophils # 14.2 10*3/uL (1.4-7.4); Neutrophils % 88.5 % (38.7-73.9); Platelet Count 241 T/CUMM (130-400); Red Cell Distribution Width 14.6 % (9.3-17.3); White Blood Count 16.1 T/CUMM (4-12)
[2017-05-02 02:43] LABS: Calcium 8.1 MG/DL (8.5-10.1); Magnesium 1.8 MG/DL (1.8-2.4); Osmolality,Calculated 277.7 MOS/KG (273-304); Potassium 4.3 MMOL/L (3.5-5.1)
[2017-05-02 02:45] LABS: Band Neutrophils 16 % (0-10); Lymphocytes 3 % (20-55); Segmented Neutrophils 77 % (50-85); Total Cells Counted 100
[2017-05-02] MEDS: MORPHINE 2 MG/1 ML SYRINGE IV PRN ×2 (03:12→07:59)
[2017-05-02] MEDS: SODIUM CHLORIDE 0.45% 1,000 ML IV SCH ×2 (03:12→11:36)
[2017-05-02] MEDS: ALBUMIN 5% 12.5 GM in PREMIX 1 EACH IV PRN (05:20)
[2017-05-02] MEDS ORDERED: FUROSEMIDE 40 MG/4 ML VIAL ONE (06:02)
[2017-05-02] MEDS ORDERED: FUROSEMIDE 40 MG/4 ML VIAL IV ONE ×2 (06:23→16:29)
[2017-05-02] MEDS: DOBUTamine 500 MG/250 ML PREMIX IV SCH (06:25)
[2017-05-02] MEDS ORDERED: MILRINONE 20 MG/100 ML PREMIX IV SCH (06:30)
[2017-05-02] MEDS ORDERED: DOBUTamine 500 MG/250 ML PREMIX IV ONE (06:36)
[2017-05-02 07:42] LABS: Hypochromasia 1+; Spherocytes Few
[2017-05-02 07:43] LABS: Polychromasia Slight
[2017-05-02 08:33] LABS: ABG Base Excess -1.3 MMOL/L (-2.5-2.5); ABG HCO3 23.1 MMOL/L (20-26); ABG Oxygen Saturation 84.5 % (95-100); ABG PCO2 48.2 MM HG (35-48); ABG PH 7.324 (7.35-7.45); ABG TCO2 22.9 MMOL/L (23-27); Glucose Heart Surgery 150 MG/DL (74-106); Hematocrit Heart Surgery 32.8 PERCENT (37-47); Hemoglobin Heart Surgery 10.6 G/DL (12.0-16.0); Potassium Heart/CVR 4.5 MMOL/L (3.5-5.1)
[2017-05-02] MEDS ORDERED: BUDESONIDE/FORMOTEROL 160-4.5 INHALER 6 GM INH PRN (08:53)
[2017-05-02 09:11] LABS: VBG Base Excess -1.1 MEQ/L (0-4); VBG HCO3 22.4 MEQ/L (24-28); VBG Oxygen Saturation 35.8 %; VBG PCO2 55.3 MMHG (41-51); VBG PH 7.286; VBG PO2 26.4 MMHG (17-40)
[2017-05-02] MEDS: KETOROLAC 15 MG/1 ML VIAL IV PRN ×3 (09:21→21:12)
[2017-05-02] MEDS: ALPRAZolam 0.5 MG TABLET PO PRN ×2 (09:22→21:12)
[2017-05-02] MEDS ORDERED: SODIUM BICARBONATE 50 MEQ/50 ML SYRINGE IV ONE (09:37)
[2017-05-02] MEDS: CHLORHEXIDINE 0.12% ORAL RINSE 60 ML BOTTLE SWISH/SPIT SCH ×2 (10:14→21:14)
[2017-05-02] MEDS: CEFUROXIME INJ 1,500 MG in SYRINGE 1 EACH IV SCH ×2 (10:15→21:13)
[2017-05-02] MEDS ORDERED: CALCIUM GLUCONATE 1,000 MG in SODIUM CHLORIDE 0.9% 50 ML IV ONE (10:21)
[2017-05-02 10:30] LABS: Lactic Acid 2.3 MMOL/L (0.4-2.0)
[2017-05-02] MEDS: SODIUM BICARB INJ 50 MEQ in SODIUM CHLORIDE 0.45% 1,000 ML IV SCH (11:00)
[2017-05-02 11:19] LABS: ABG Base Excess 1.1 MMOL/L (-2.5-2.5); ABG HCO3 25.4 MMOL/L (20-26); ABG Oxygen Saturation 97.2 % (95-100); ABG PCO2 47.2 MM HG (35-48); ABG PH 7.364 (7.35-7.45); ABG PO2 97.9 MM HG (80-95); ABG TCO2 24.5 MMOL/L (23-27); Glucose Heart Surgery 130 MG/DL (74-106); Hematocrit Heart Surgery 31.4 PERCENT (37-47); Hemoglobin Heart Surgery 10.2 G/DL (12.0-16.0)
[2017-05-02] MEDS ORDERED: ACETYLCYSTEINE 20% 800 MG/4 ML VIAL RESP TX ONE (11:19)
[2017-05-02] MEDS: FUROSEMIDE 40 MG TABLET PO SCH (13:52)
[2017-05-02] MEDS: ASPIRIN EC 325 MG TABLET PO SCH (13:52)
[2017-05-02] MEDS: ATORVASTATIN 40 MG TABLET PO SCH ×2 (13:52→21:12)
[2017-05-02] MEDS: NITROGLYCERIN DRIP 50 MG/250 ML BOTTLE IV SCH (14:33)
[2017-05-02] MEDS: INSULIN REGULAR DRIP 100 ML IV SCH (14:47)
[2017-05-02] MEDS: NITROPRUSSIDE 100 MG in DEXTROSE 5% 250 ML IV SCH (16:45)
[2017-05-02 18:01] LABS: ABG Base Excess 1.4 MMOL/L (-2.5-2.5); ABG HCO3 25.6 MMOL/L (20-26); ABG Oxygen Saturation 91.8 % (95-100); ABG PCO2 43.9 MM HG (35-48); ABG PH 7.391 (7.35-7.45); ABG PO2 67.4 MM HG (80-95); ABG TCO2 24.2 MMOL/L (23-27); Glucose Heart Surgery 134 MG/DL (74-106); Hematocrit Heart Surgery 31.8 PERCENT (37-47); Hemoglobin Heart Surgery 10.3 G/DL (12.0-16.0)
[2017-05-02 18:04] LABS: Basophils % 0.1 % (0.0-0.8); Hematocrit 29.5 VOL% (35.7-47.0); Hemoglobin 10.2 GM/DL (12.0-16.0); Immature Granulocytes % 0.5 %; Immature Granulocytes Absolute 0.07 #; Lymphocytes # 1.6 10*3/uL (1.4-4.0); Lymphocytes % 11.2 % (21.3-54.2); Mean Corpuscular HGB Conc 34.6 GM/DL (32-36); Mean Corpuscular Hemoglobin 32 PG (27-34); Mean Corpuscular Volume 92.8 FL (87-102); Mean Platelet Volume 10.4 FL (9.6-12.0); Monocytes # 0.9 10*3/uL (0.11-0.8); Monocytes % 6.5 % (1.7-12.7); Neutrophils # 11.6 10*3/uL (1.4-7.4); Neutrophils % 81.7 % (38.7-73.9); Platelet Count 173 T/CUMM (130-400); Red Blood Count 3.18 MC/CUMM (3.8-5.5); Red Cell Distribution Width 14.7 % (9.3-17.3); White Blood Count 14.2 T/CUMM (4-12)
[2017-05-02 18:32] LABS: Osmolality,Calculated 290.3 MOS/KG (273-304); Potassium 4.2 MMOL/L (3.5-5.1)
[2017-05-02] MEDS: BUDESONIDE/FORMOTEROL 160-4.5 INHALER 6 GM INH SCH (21:12)
[2017-05-03 03:12] LABS: Basophils % 0.1 % (0.0-0.8); Hematocrit 27.8 VOL% (35.7-47.0); Hemoglobin 9.5 GM/DL (12.0-16.0); Immature Granulocytes % 0.3 %; Immature Granulocytes Absolute 0.04 #; Lymphocytes # 1.9 10*3/uL (1.4-4.0); Lymphocytes % 15.5 % (21.3-54.2); Mean Corpuscular HGB Conc 34.2 GM/DL (32-36); Mean Corpuscular Hemoglobin 32 PG (27-34); Mean Corpuscular Volume 93.3 FL (87-102); Mean Platelet Volume 10.5 FL (9.6-12.0); Monocytes # 0.7 10*3/uL (0.11-0.8); Monocytes % 5.6 % (1.7-12.7); Neutrophils # 9.5 10*3/uL (1.4-7.4); Neutrophils % 78.5 % (38.7-73.9); Platelet Count 151 T/CUMM (130-400); Red Blood Count 2.98 MC/CUMM (3.8-5.5); Red Cell Distribution Width 14.4 % (9.3-17.3); White Blood Count 12.1 T/CUMM (4-12)
[2017-05-03 03:49] LABS: Calcium 7.6 MG/DL (8.5-10.1); Magnesium 2.3 MG/DL (1.8-2.4); Osmolality,Calculated 282.8 MOS/KG (273-304); Potassium 4.2 MMOL/L (3.5-5.1)
[2017-05-03] MEDS: ALBUTEROL 2.5 MG/3 ML NEB RESP TX SCH ×6 (04:10→23:37)
[2017-05-03] MEDS: KETOROLAC 15 MG/1 ML VIAL IV PRN (04:36)
[2017-05-03] MEDS: ALBUMIN 5% 12.5 GM in PREMIX 1 EACH IV PRN ×2 (06:56→07:33)
[2017-05-03] MEDS: MORPHINE 2 MG/1 ML SYRINGE IV PRN ×4 (07:14→18:56)
[2017-05-03] MEDS: DOBUTamine 500 MG/250 ML PREMIX IV SCH (07:24)
[2017-05-03] MEDS ORDERED: FUROSEMIDE 40 MG/4 ML VIAL IV ONE (07:30)
[2017-05-03] MEDS: FUROSEMIDE 40 MG TABLET PO SCH (10:15)
[2017-05-03] MEDS: SODIUM CHLORIDE 0.45% 1,000 ML IV SCH (10:41)
[2017-05-03] MEDS: SODIUM BICARB INJ 50 MEQ in SODIUM CHLORIDE 0.45% 1,000 ML IV SCH (10:42)
[2017-05-03] MEDS: CEFUROXIME INJ 1,500 MG in SYRINGE 1 EACH IV SCH ×2 (10:46→23:03)
[2017-05-03] MEDS: ASPIRIN EC 325 MG TABLET PO SCH (10:46)
[2017-05-03] MEDS: CHLORHEXIDINE 0.12% ORAL RINSE 60 ML BOTTLE SWISH/SPIT SCH ×2 (10:47→20:15)
[2017-05-03] MEDS: BUDESONIDE/FORMOTEROL 160-4.5 INHALER 6 GM INH SCH ×2 (10:47→20:13)
[2017-05-03] MEDS: NITROGLYCERIN DRIP 50 MG/250 ML BOTTLE IV SCH (14:54)
[2017-05-03] MEDS: INSULIN REGULAR DRIP 100 ML IV SCH (14:54)
[2017-05-03] MEDS: ALPRAZolam 0.5 MG TABLET PO PRN ×2 (14:56→20:15)
[2017-05-03] MEDS: NITROPRUSSIDE 100 MG in DEXTROSE 5% 250 ML IV SCH (17:10)
[2017-05-03] MEDS: MORPHINE 10 MG/1 ML VIAL IV PRN (20:14)
[2017-05-03] MEDS: ATORVASTATIN 40 MG TABLET PO SCH (20:14)
[2017-05-04] MEDS: MORPHINE 2 MG/1 ML SYRINGE IV PRN ×3 (03:47→19:59)
[2017-05-04 03:49] LABS: Basophils % 0.1 % (0.0-0.8); Hematocrit 29.2 VOL% (35.7-47.0); Hemoglobin 9.9 GM/DL (12.0-16.0); Immature Granulocytes % 0.6 %; Immature Granulocytes Absolute 0.08 #; Lymphocytes # 2.4 10*3/uL (1.4-4.0); Lymphocytes % 16.7 % (21.3-54.2); Mean Corpuscular HGB Conc 33.9 GM/DL (32-36); Mean Corpuscular Hemoglobin 32 PG (27-34); Mean Corpuscular Volume 94.5 FL (87-102); Mean Platelet Volume 11.3 FL (9.6-12.0); Monocytes # 0.9 10*3/uL (0.11-0.8); Monocytes % 6.5 % (1.7-12.7); Neutrophils # 10.7 10*3/uL (1.4-7.4); Neutrophils % 76.1 % (38.7-73.9); Platelet Count 132 T/CUMM (130-400); Red Blood Count 3.09 MC/CUMM (3.8-5.5); Red Cell Distribution Width 14.3 % (9.3-17.3); White Blood Count 14.1 T/CUMM (4-12)
[2017-05-04 04:14] LABS: Magnesium 2.9 MG/DL (1.8-2.4); Osmolality,Calculated 288.7 MOS/KG (273-304); Potassium 4.4 MMOL/L (3.5-5.1)
[2017-05-04] MEDS: ALBUTEROL 2.5 MG/3 ML NEB RESP TX SCH ×6 (04:28→22:46)
[2017-05-04] MEDS: DOBUTamine 500 MG/250 ML PREMIX IV SCH (08:08)
[2017-05-04] MEDS: KETOROLAC 15 MG/1 ML VIAL IV PRN (09:15)
[2017-05-04] MEDS: ASPIRIN EC 325 MG TABLET PO SCH (09:16)
[2017-05-04] MEDS: ALPRAZolam 0.5 MG TABLET PO PRN (09:16)
[2017-05-04] MEDS: FUROSEMIDE 40 MG TABLET PO SCH (09:16)
[2017-05-04] MEDS: CEFUROXIME INJ 1,500 MG in SYRINGE 1 EACH IV SCH ×2 (09:16→21:40)
[2017-05-04] MEDS: BUDESONIDE/FORMOTEROL 160-4.5 INHALER 6 GM INH SCH ×2 (09:16→21:51)
[2017-05-04] MEDS: CHLORHEXIDINE 0.12% ORAL RINSE 60 ML BOTTLE SWISH/SPIT SCH ×2 (09:17→21:51)
[2017-05-04] MEDS ORDERED: POLYETHYLENE GLYCOL POWDER 17 GM PACK PO PRN (09:29)
[2017-05-04] MEDS: ISOSORBIDE MONONITRATE 30 MG TABLET PO SCH (10:56)
[2017-05-04] MEDS: METOPROLOL TARTRATE 25 MG TABLET PO SCH ×2 (10:57→21:51)
[2017-05-04 14:51] LABS: ABG Base Excess -0.7 MMOL/L (-2.5-2.5); ABG HCO3 23.8 MMOL/L (20-26); ABG PCO2 36.6 MM HG (35-48); ABG PH 7.416 (7.35-7.45); ABG PO2 79.7 MM HG (80-95); ABG TCO2 21.4 MMOL/L (23-27)
[2017-05-04] MEDS: INSULIN REGULAR DRIP 100 ML IV SCH (19:42)
[2017-05-04] MEDS: NITROPRUSSIDE 100 MG in DEXTROSE 5% 250 ML IV SCH (19:43)
[2017-05-04 19:55] LABS: Apearance,Urine CLEAR (Clear); Bilirubin,Urine Negative (Negative); Blood, Urine Moderate mg/dL (Negative); Glucose,Urine (UA) Negative (Negative); Hyaline Casts,Urine 4 /LPF (0-3); Ketones,Urine Negative (Negative); Mucus,Urine Occasional /LPF (Occasional); Nitrite,Urine Negative (Negative); Protein,Urine Negative; RBC,Urine 19 /HPF (0-4); Urine Color Yellow (Yellow); Urine Specific Gravity 1.013 (1.001-1.035); WBC,Urine 4 /HPF (0-6)
[2017-05-04] MEDS: ATORVASTATIN 40 MG TABLET PO SCH (21:50)
[2017-05-05] MEDS: KETOROLAC 15 MG/1 ML VIAL IV PRN (02:05)
[2017-05-05] MEDS: ALBUTEROL 2.5 MG/3 ML NEB RESP TX SCH ×6 (02:33→23:55)
[2017-05-05 03:47] LABS: Basophils % 0.1 % (0.0-0.8); Eosinophils % 0.1 % (0.00-10.9); Hematocrit 29.4 VOL% (35.7-47.0); Hemoglobin 9.5 GM/DL (12.0-16.0); Immature Granulocytes % 0.8 %; Immature Granulocytes Absolute 0.13 #; Lymphocytes # 1.9 10*3/uL (1.4-4.0); Lymphocytes % 11.9 % (21.3-54.2); Mean Corpuscular HGB Conc 32.3 GM/DL (32-36); Mean Corpuscular Hemoglobin 31 PG (27-34); Mean Corpuscular Volume 96.7 FL (87-102); Monocytes # 1.3 10*3/uL (0.11-0.8); Monocytes % 8.3 % (1.7-12.7); NRBC # 0.18 10*3/uL; Neutrophils # 12.7 10*3/uL (1.4-7.4); Neutrophils % 78.8 % (38.7-73.9); Platelet Count 118 T/CUMM (130-400); Red Blood Count 3.04 MC/CUMM (3.8-5.5); Red Cell Distribution Width 14.5 % (9.3-17.3); White Blood Count 16.1 T/CUMM (4-12)
[2017-05-05 04:15] LABS: Calcium 8.2 MG/DL (8.5-10.1); Magnesium 2.9 MG/DL (1.8-2.4); Osmolality,Calculated 290.7 MOS/KG (273-304); Potassium 4.3 MMOL/L (3.5-5.1)
[2017-05-05] MEDS ORDERED: LACTATED RINGERS 500 ML IV ONE (06:27)
[2017-05-05] MEDS ORDERED: SODIUM CHLORIDE 0.9% 500 ML IV ONE (07:33)
[2017-05-05] MEDS: DOBUTamine 500 MG/250 ML PREMIX IV SCH (07:35)
[2017-05-05] MEDS: PIPERACILLIN/TAZOBACTAM 3,375 MG in SODIUM CHLORIDE 0.9% 100 ML IV SCH ×2 (08:59→17:04)
[2017-05-05] MEDS: ASPIRIN EC 325 MG TABLET PO SCH (10:23)
[2017-05-05] MEDS: ISOSORBIDE MONONITRATE 30 MG TABLET PO SCH (10:23)
[2017-05-05] MEDS: FUROSEMIDE 40 MG TABLET PO SCH (10:23)
[2017-05-05] MEDS: BUDESONIDE/FORMOTEROL 160-4.5 INHALER 6 GM INH SCH ×2 (10:31→21:27)
[2017-05-05] MEDS: CHLORHEXIDINE 0.12% ORAL RINSE 60 ML BOTTLE SWISH/SPIT SCH ×2 (10:33→21:27)
[2017-05-05] MEDS ORDERED: FUROSEMIDE 40 MG/4 ML VIAL IV ONE (11:08)
[2017-05-05] MEDS ORDERED: ALBUMIN 5% 12.5 GM in PREMIX 1 EACH IV ONE (11:09)
[2017-05-05 11:38] LABS: ABG Base Excess 0.5 MMOL/L (-2.5-2.5); ABG HCO3 24.8 MMOL/L (20-26); ABG Oxygen Saturation 90.3 % (95-100); ABG PCO2 33.7 MM HG (35-48); ABG PO2 62.5 MM HG (80-95); ABG TCO2 21.9 MMOL/L (23-27)
[2017-05-05] MEDS: CEFUROXIME INJ 1,500 MG in SYRINGE 1 EACH IV SCH ×2 (11:56→21:44)
[2017-05-05] MEDS: VANCOMYCIN INJ 750 MG in SODIUM CHLORIDE 0.9% 150 ML IV SCH (12:02)
[2017-05-05] MEDS: METOPROLOL TARTRATE 25 MG TABLET PO SCH ×2 (13:03→21:26)
[2017-05-05] MEDS: MORPHINE 2 MG/1 ML SYRINGE IV PRN (15:55)
[2017-05-05 15:56] LABS: ABG Base Excess 2.2 MMOL/L (-2.5-2.5); ABG HCO3 26.4 MMOL/L (20-26); ABG Oxygen Saturation 99.8 % (95-100); ABG PH 7.431 (7.35-7.45); ABG TCO2 24.5 MMOL/L (23-27)
[2017-05-05 20:08] LABS: ABG Base Excess 3.7 MMOL/L (-2.5-2.5); ABG HCO3 27.7 MMOL/L (20-26); ABG Oxygen Saturation 94.9 % (95-100); ABG PCO2 36.9 MM HG (35-48); ABG PH 7.478 (7.35-7.45); ABG PO2 73.9 MM HG (80-95); ABG TCO2 25.2 MMOL/L (23-27)
[2017-05-05] MEDS: ALBUMIN 5% 12.5 GM in PREMIX 1 EACH IV PRN (21:23)
[2017-05-05] MEDS: ATORVASTATIN 40 MG TABLET PO SCH (21:24)
[2017-05-05] MEDS: MORPHINE 10 MG/1 ML VIAL IV PRN (22:15)
[2017-05-06] MEDS: PIPERACILLIN/TAZOBACTAM 3,375 MG in SODIUM CHLORIDE 0.9% 100 ML IV SCH ×3 (01:09→17:04)
[2017-05-06] MEDS: ONDANSETRON 4 MG/2 ML VIAL IV PRN (01:19)
[2017-05-06] MEDS: ALBUTEROL 2.5 MG/3 ML NEB RESP TX SCH ×5 (03:03→19:38)
[2017-05-06 06:01] LABS: Calcium 7.7 MG/DL (8.5-10.1); Osmolality,Calculated 295.5 MOS/KG (273-304); Potassium 4.6 MMOL/L (3.5-5.1)
[2017-05-06 06:13] LABS: ABG Base Excess -2.8 MMOL/L (-2.5-2.5); ABG HCO3 22.1 MMOL/L (20-26); ABG Oxygen Saturation 98.1 % (95-100); ABG PCO2 36.3 MM HG (35-48); ABG PH 7.386 (7.35-7.45); ABG TCO2 20.1 MMOL/L (23-27)
[2017-05-06 06:30] LABS: Basophils % 0.1 % (0.0-0.8); Hematocrit 26.4 VOL% (35.7-47.0); Hemoglobin 8.6 GM/DL (12.0-16.0); Immature Granulocytes % 1.3 %; Immature Granulocytes Absolute 0.22 #; Lymphocytes # 1.6 10*3/uL (1.4-4.0); Lymphocytes % 9.2 % (21.3-54.2); Mean Corpuscular HGB Conc 32.6 GM/DL (32-36); Mean Corpuscular Hemoglobin 32 PG (27-34); Mean Corpuscular Volume 98.5 FL (87-102); Mean Platelet Volume 11.6 FL (9.6-12.0); Monocytes # 1.6 10*3/uL (0.11-0.8); Monocytes % 9.1 % (1.7-12.7); NRBC # 0.75 10*3/uL; Neutrophils # 13.8 10*3/uL (1.4-7.4); Neutrophils % 80.3 % (38.7-73.9); Platelet Count 86 T/CUMM (130-400); Red Blood Count 2.68 MC/CUMM (3.8-5.5); Red Cell Distribution Width 14.7 % (9.3-17.3); White Blood Count 17.1 T/CUMM (4-12)
[2017-05-06] MEDS: ALBUMIN 5% 12.5 GM in PREMIX 1 EACH IV PRN (06:37)
[2017-05-06 06:48] LABS: Hypochromasia 1+; Ovalocytes Slight
[2017-05-06 06:49] LABS: Giant Platelets Few; Macrocytosis Slight; Platelet Estimate Decreased; Polychromasia Slight
[2017-05-06] MEDS ORDERED: FUROSEMIDE 40 MG/4 ML VIAL IV ONE (06:50)
[2017-05-06] MEDS ORDERED: SODIUM CHLORIDE 0.9% 1,000 ML IV PRN (06:55)
[2017-05-06] MEDS: DEXTROSE 50% 25 GM/50 ML VIAL IV PRN ×2 (07:51→09:09)
[2017-05-06] MEDS ORDERED: CALCIUM GLUCONATE 2,000 MG in SODIUM CHLORIDE 0.9% 100 ML IV ONE (08:03)
[2017-05-06] MEDS: BUDESONIDE/FORMOTEROL 160-4.5 INHALER 6 GM INH SCH ×2 (08:36→20:55)
[2017-05-06] MEDS: methylPREDNISolone SOD SUC 40 MG/1 ML VIAL IV SCH ×2 (09:08→20:53)
[2017-05-06] MEDS: CEFUROXIME INJ 1,500 MG in SYRINGE 1 EACH IV SCH ×2 (10:14→22:08)
[2017-05-06] MEDS: CHLORHEXIDINE 0.12% ORAL RINSE 60 ML BOTTLE SWISH/SPIT SCH ×2 (10:31→20:55)
[2017-05-06] MEDS: ASPIRIN EC 325 MG TABLET PO SCH (10:47)
[2017-05-06] MEDS: FUROSEMIDE 40 MG TABLET PO SCH (10:47)
[2017-05-06] MEDS: METOPROLOL TARTRATE 25 MG TABLET PO SCH ×2 (10:53→20:54)
[2017-05-06 11:17] LABS: Hematocrit 30.6 VOL% (35.7-47.0); Hemoglobin 9.7 GM/DL (12.0-16.0)
[2017-05-06] MEDS: VANCOMYCIN INJ 750 MG in SODIUM CHLORIDE 0.9% 150 ML IV SCH (12:18)
[2017-05-06] MEDS: ALPRAZolam 0.5 MG TABLET PO SCH ×2 (15:26→20:54)
[2017-05-06] MEDS: ATORVASTATIN 40 MG TABLET PO SCH (20:54)
[2017-05-07] MEDS: PIPERACILLIN/TAZOBACTAM 3,375 MG in SODIUM CHLORIDE 0.9% 100 ML IV SCH ×3 (00:55→17:22)
[2017-05-07] MEDS: ALBUTEROL 2.5 MG/3 ML NEB RESP TX SCH ×7 (01:06→23:40)
[2017-05-07 06:22] LABS: Calcium 8.1 MG/DL (8.5-10.1); Osmolality,Calculated 311.4 MOS/KG (273-304); Potassium 4.1 MMOL/L (3.5-5.1)
[2017-05-07 07:43] LABS: Basophils # 0.1 10*3/uL (0.0-0.2); Basophils % 0.2 % (0.0-0.8); Hematocrit 27.9 VOL% (35.7-47.0); Hemoglobin 9.4 GM/DL (12.0-16.0); Immature Granulocytes % 3.9 %; Immature Granulocytes Absolute 0.95 #; Lymphocytes # 1.7 10*3/uL (1.4-4.0); Lymphocytes % 7.1 % (21.3-54.2); Mean Corpuscular HGB Conc 33.7 GM/DL (32-36); Mean Corpuscular Hemoglobin 33 PG (27-34); Mean Corpuscular Volume 96.9 FL (87-102); Mean Platelet Volume 13.2 FL (9.6-12.0); Monocytes # 2.1 10*3/uL (0.11-0.8); Monocytes % 8.8 % (1.7-12.7); NRBC # 3.02 10*3/uL; Neutrophils # 19.3 10*3/uL (1.4-7.4); Red Blood Count 2.88 MC/CUMM (3.8-5.5); Red Cell Distribution Width 15.5 % (9.3-17.3)
[2017-05-07 07:52] LABS: Platelet Count 42 T/CUMM (130-400); White Blood Count 24.1 T/CUMM (4-12)
[2017-05-07 08:16] LABS: Hypochromasia 1+; Lymphocytes 14 % (20-55); Macrocytosis Slight; Nucleated Red Blood Cells 11 (0-5); Segmented Neutrophils 81 % (50-85); Total Cells Counted 100
[2017-05-07 08:17] LABS: Platelet Estimate Decreased; Polychromasia Slight; Target Cells 1+
[2017-05-07] MEDS: ARFORMOTEROL 15 MCG/2 ML NEB RESP TX SCH ×2 (09:30→18:02)
[2017-05-07] MEDS: ASPIRIN EC 325 MG TABLET PO SCH (09:32)
[2017-05-07] MEDS: METOPROLOL TARTRATE 25 MG TABLET PO SCH ×2 (09:32→22:02)
[2017-05-07] MEDS: FUROSEMIDE 40 MG TABLET PO SCH (09:32)
[2017-05-07] MEDS: methylPREDNISolone SOD SUC 40 MG/1 ML VIAL IV SCH ×2 (09:33→22:45)
[2017-05-07] MEDS: ALPRAZolam 0.5 MG TABLET PO SCH (09:35)
[2017-05-07] MEDS: CHLORHEXIDINE 0.12% ORAL RINSE 60 ML BOTTLE SWISH/SPIT SCH (09:41)
[2017-05-07] MEDS ORDERED: VANCOMYCIN INJ 750 MG in SODIUM CHLORIDE 0.9% 250 ML IV SCH (11:00)
[2017-05-07] MEDS: CEFUROXIME INJ 1,500 MG in SYRINGE 1 EACH IV SCH ×2 (11:46→22:02)
[2017-05-07 11:50] LABS: Apearance,Urine CLOUDY (Clear); Bilirubin,Urine Negative (Negative); Blood, Urine Large mg/dL (Negative); Glucose,Urine (UA) 50 mg/dL (Negative); Ketones,Urine Negative (Negative); Mucus,Urine Occasional /LPF (Occasional); Nitrite,Urine Negative (Negative); Protein,Urine 100 MG/DL; RBC,Urine 708 /HPF (0-4); Squamous Epithelial Cell,Urine Occasional /HPF (0-10); Urine Color Amber (Yellow); Urine Specific Gravity 1.015 (1.001-1.035); Urine Urobilinogen < 2.0 EU/DL (0.2-1.0); WBC,Urine 178 /HPF (0-6)
[2017-05-07] MEDS ORDERED: PROPOFOL 1,000 MG/100 ML BOTTLE IV ONE (16:05)
[2017-05-07] MEDS ORDERED: PHENYLEPHRINE DRIP 40 MG/250 ML PREMIX IV ONE (16:11)
[2017-05-07] MEDS ORDERED: SODIUM CHLORIDE 0.9% 500 ML IV ONE (16:20)
[2017-05-07] MEDS ORDERED: ROCURONIUM 100 MG/10 ML VIAL IV ONE (16:28)
[2017-05-07] MEDS ORDERED: SUCCINYLCHOLINE 200 MG/10 ML VIAL ONE (16:28)
[2017-05-07] MEDS ORDERED: PHENYLEPHRINE DRIP 40 MG/250 ML PREMIX IV SCH (16:30)
[2017-05-07] MEDS: NOREPINEPHRINE 8 MG in SODIUM CHLORIDE 0.9% 242 ML IV SCH (16:39)
[2017-05-07 16:47] LABS: ABG Base Excess -5.8 MMOL/L (-2.5-2.5); ABG HCO3 19.7 MMOL/L (20-26); ABG Oxygen Saturation 99.6 % (95-100); ABG PCO2 40.6 MM HG (35-48); ABG PH 7.304 (7.35-7.45); ABG TCO2 18.9 MMOL/L (23-27)
[2017-05-07] MEDS: PROPOFOL 1,000 MG/100 ML BOTTLE IV SCH (17:33)
[2017-05-07] MEDS: ATORVASTATIN 40 MG TABLET PO SCH (22:02)
[2017-05-08] MEDS: CHLORHEXIDINE 0.12% ORAL RINSE 60 ML BOTTLE SWISH/SPIT SCH ×3 (01:25→21:41)
[2017-05-08] MEDS: PIPERACILLIN/TAZOBACTAM 3,375 MG in SODIUM CHLORIDE 0.9% 100 ML IV SCH ×2 (01:41→13:27)
[2017-05-08] MEDS: ALBUTEROL 2.5 MG/3 ML NEB RESP TX SCH ×6 (02:40→23:09)
[2017-05-08] MEDS: MIDAZOLAM 2 MG/2 ML VIAL IV PRN ×2 (03:44→19:56)
[2017-05-08 04:02] LABS: ABG Base Excess -4.5 MMOL/L (-2.5-2.5); ABG HCO3 20.7 MMOL/L (20-26); ABG Oxygen Saturation 98.7 % (95-100); ABG PCO2 30.9 MM HG (35-48); ABG PH 7.408 (7.35-7.45); ABG TCO2 18.1 MMOL/L (23-27); Allen Test Positive; Pt O2 Delivery Device Ventilator
[2017-05-08 04:46] LABS: Basophils # 0.1 10*3/uL (0.0-0.2); Basophils % 0.4 % (0.0-0.8); Hematocrit 24.8 VOL% (35.7-47.0); Hemoglobin 8.3 GM/DL (12.0-16.0); Immature Granulocytes % 5.9 %; Immature Granulocytes Absolute 1.18 #; Lymphocytes # 1.5 10*3/uL (1.4-4.0); Lymphocytes % 7.5 % (21.3-54.2); Mean Corpuscular HGB Conc 33.5 GM/DL (32-36); Mean Corpuscular Hemoglobin 31 PG (27-34); Mean Corpuscular Volume 93.9 FL (87-102); Mean Platelet Volume 13.2 FL (9.6-12.0); Monocytes % 4.9 % (1.7-12.7); NRBC # 4.18 10*3/uL; Neutrophils # 16.3 10*3/uL (1.4-7.4); Neutrophils % 81.3 % (38.7-73.9); Red Blood Count 2.64 MC/CUMM (3.8-5.5); Red Cell Distribution Width 15.1 % (9.3-17.3)
[2017-05-08 05:10] LABS: Calcium 7.5 MG/DL (8.5-10.1); Osmolality,Calculated 336.8 MOS/KG (273-304); Potassium 4.1 MMOL/L (3.5-5.1)
[2017-05-08 05:32] LABS: Calcium 7.6 MG/DL (8.5-10.1); Magnesium 3.2 MG/DL (1.8-2.4); Potassium 4.1 MMOL/L (3.5-5.1)
[2017-05-08 05:33] LABS: Platelet Count 38 T/CUMM (130-400)
[2017-05-08] MEDS ORDERED: SODIUM CHLORIDE 0.9% 1,000 ML IV PRN ×3 (06:02→20:36)
[2017-05-08 06:15] LABS: Band Neutrophils 2 % (0-10); Lymphocytes 5 % (20-55); Metamyelocytes 1 %; Myelocytes 1 %; Nucleated Red Blood Cells 24 (0-5); Segmented Neutrophils 87 % (50-85); Total Cells Counted 100
[2017-05-08 06:16] LABS: Burr Cells Few; Hypochromasia 1+; Microcytosis 1+; Target Cells Slight
[2017-05-08 06:17] LABS: Platelet Estimate Decreased
[2017-05-08] MEDS: ARFORMOTEROL 15 MCG/2 ML NEB RESP TX SCH ×2 (07:17→19:47)
[2017-05-08] MEDS: PROPOFOL 1,000 MG/100 ML BOTTLE IV SCH ×2 (08:27→18:16)
[2017-05-08] MEDS ORDERED: SODIUM CHLORIDE 0.9% 1,000 ML IV SCH (08:30)
[2017-05-08] MEDS: SODIUM CHLORIDE 0.9% 1,000 ML IV SCH ×2 (08:33→18:21)
[2017-05-08] MEDS: METOPROLOL TARTRATE 25 MG TABLET PO SCH ×2 (09:15→21:06)
[2017-05-08] MEDS: methylPREDNISolone SOD SUC 40 MG/1 ML VIAL IV SCH ×2 (09:16→21:06)
[2017-05-08] MEDS ORDERED: GLUCAGON 1 MG VIAL IM PRN (12:27)
[2017-05-08] MEDS: FAMOTIDINE 20 MG/2 ML VIAL IV SCH (15:42)
[2017-05-08] MEDS ORDERED: LACTULOSE 20 GM/30 ML UDCUP PO PRN (16:58)
[2017-05-08] MEDS ORDERED: LACTULOSE 20 GM/30 ML UDCUP PO SCH (17:30)
[2017-05-08] MEDS: NOREPINEPHRINE 8 MG in SODIUM CHLORIDE 0.9% 242 ML IV SCH ×2 (18:50→19:57)
[2017-05-08] MEDS: LACTULOSE 20 GM/30 ML UDCUP PO SCH ×2 (18:54→23:11)
[2017-05-08 18:59] LABS: Bilirubin,Direct 2.38 MG/DL (0.0-0.20); Bilirubin,Indirect 0.8 MG/DL (0.0-1.0); Bilirubin,Total 3.2 MG/DL (0.2-1.0); Total Protein 5.7 G/DL (6.4-8.3)
[2017-05-08 19:44] LABS: Basophils # 0.2 10*3/uL (0.0-0.2); Basophils % 0.8 % (0.0-0.8); Hematocrit 33.9 VOL% (35.7-47.0); Immature Granulocytes % 5.9 %; Immature Granulocytes Absolute 1.23 #; Lymphocytes # 1.7 10*3/uL (1.4-4.0); Mean Corpuscular HGB Conc 32.4 GM/DL (32-36); Mean Corpuscular Hemoglobin 31 PG (27-34); Mean Platelet Volume 11.7 FL (9.6-12.0); Monocytes # 1.5 10*3/uL (0.11-0.8); Neutrophils # 16.3 10*3/uL (1.4-7.4); Neutrophils % 78.3 % (38.7-73.9); Red Blood Count 3.53 MC/CUMM (3.8-5.5); Red Cell Distribution Width 15.1 % (9.3-17.3); White Blood Count 20.9 T/CUMM (4-12)
[2017-05-08 19:47] LABS: Platelet Count 74 T/CUMM (130-400)
[2017-05-08 19:51] LABS: Hepatitis A Ab IgM Quant 0.14 Index; Hepatitis A Ab IgM Result Negative (Negative); Hepatitis B Core IgM Quant 0.06 Index; Hepatitis B Core IgM Result Negative (Negative); Hepatitis B Surface Ag Quant 0.38 Index; Hepatitis B Surface Ag Result Negative (Negative); Hepatitis C Virus Ab Quant 0.23 Index; Hepatitis C Virus Ab Result Negative (Negative)
[2017-05-08 20:13] LABS: INR 2.3; Partial Thromboplastin Time 36.5 SECS (0-40)
[2017-05-08 20:18] LABS: Band Neutrophils 1 % (0-10); Lymphocytes 8 % (20-55); Metamyelocytes 1 %; Myelocytes 1 %; Nucleated Red Blood Cells 27 (0-5); Platelet Estimate Increased; Segmented Neutrophils 85 % (50-85); Total Cells Counted 100
[2017-05-08 20:26] LABS: PT Patient Result 23.4 SECS
[2017-05-08] MEDS ORDERED: PANTOPRAZOLE 40 MG VIAL IV SCH (21:00)
[2017-05-08] MEDS: ATORVASTATIN 40 MG TABLET PO SCH (21:06)
[2017-05-08] MEDS ORDERED: FUROSEMIDE 40 MG/4 ML VIAL IV ONE (21:30)
[2017-05-08] MEDS ORDERED: METOPROLOL TARTRATE 5 MG/5 ML VIAL IV ONE ×2 (21:37→22:00)
[2017-05-08] MEDS ORDERED: CEFUROXIME INJ 1,500 MG in SYRINGE 1 EACH IV SCH (22:00)
[2017-05-09] MEDS: MIDAZOLAM 2 MG/2 ML VIAL IV PRN (02:24)
[2017-05-09] MEDS: ALBUTEROL 2.5 MG/3 ML NEB RESP TX SCH ×6 (02:36→23:58)
[2017-05-09] MEDS: PIPERACILLIN/TAZOBACTAM 3,375 MG in SODIUM CHLORIDE 0.9% 100 ML IV SCH ×2 (02:45→13:28)
[2017-05-09] MEDS: LACTULOSE 20 GM/30 ML UDCUP PO SCH ×6 (02:56→21:10)
[2017-05-09] MEDS ORDERED: FUROSEMIDE 40 MG/4 ML VIAL IV ONE (03:00)
[2017-05-09] MEDS: NOREPINEPHRINE 8 MG in SODIUM CHLORIDE 0.9% 242 ML IV SCH ×4 (03:09→20:05)
[2017-05-09] MEDS: DEXMEDETOMIDINE 200 MCG in SODIUM CHLORIDE 0.9% 48 ML IV SCH ×2 (04:07→08:31)
[2017-05-09] MEDS: METOPROLOL TARTRATE 5 MG/5 ML VIAL IV SCH ×2 (04:08→12:18)
[2017-05-09 04:39] LABS: ABG Base Excess -13.7 MMOL/L (-2.5-2.5); ABG HCO3 13.7 MMOL/L (20-26); ABG Oxygen Saturation 83.3 % (95-100); ABG PCO2 38.3 MM HG (35-48); ABG PO2 62.5 MM HG (80-95); ABG TCO2 13.4 MMOL/L (23-27); Allen Test Positive; Pt O2 Delivery Device Ventilator
[2017-05-09 04:44] LABS: ABG PH 7.175 (7.35-7.45)
[2017-05-09 05:05] LABS: ABG HCO3 13.7 MMOL/L (20-26); ABG Oxygen Saturation 98.6 % (95-100); ABG PCO2 34.7 MM HG (35-48); ABG TCO2 12.5 MMOL/L (23-27)
[2017-05-09 05:07] LABS: ABG PH 7.194 (7.35-7.45)
[2017-05-09 05:43] LABS: Basophils # 0.2 10*3/uL (0.0-0.2); Basophils % 0.8 % (0.0-0.8); Hematocrit 29.1 VOL% (35.7-47.0); Hemoglobin 9.3 GM/DL (12.0-16.0); Immature Granulocytes % 5.4 %; Lymphocytes % 4.9 % (21.3-54.2); Mean Corpuscular Hemoglobin 32 PG (27-34); Mean Platelet Volume 12.1 FL (9.6-12.0); Monocytes # 1.7 10*3/uL (0.11-0.8); Monocytes % 8.5 % (1.7-12.7); NRBC # 6.77 10*3/uL; Neutrophils # 16.5 10*3/uL (1.4-7.4); Neutrophils % 80.4 % (38.7-73.9); Platelet Count 42 T/CUMM (130-400); Red Blood Count 2.94 MC/CUMM (3.8-5.5); Red Cell Distribution Width 15.6 % (9.3-17.3); White Blood Count 20.5 T/CUMM (4-12)
[2017-05-09] MEDS ORDERED: SODIUM BICARBONATE 50 MEQ/50 ML SYRINGE IV ONE ×3 (05:44→20:51)
[2017-05-09 05:51] LABS: INR 1.7; PT Patient Result 17.8 SECS; Partial Thromboplastin Time 32.3 SECS (0-40)
[2017-05-09] MEDS ORDERED: SODIUM BICARB INJ 50 MEQ in SODIUM CHLORIDE 0.45% 1,000 ML IV SCH (06:00)
[2017-05-09 06:08] LABS: Calcium 6.2 MG/DL (8.5-10.1); Magnesium 2.8 MG/DL (1.8-2.4); Potassium 4.1 MMOL/L (3.5-5.1)
[2017-05-09 06:12] LABS: Lymphocytes 6 % (20-55); Myelocytes 3 %; Nucleated Red Blood Cells 38 (0-5); Prealbumin 16.3 MG/DL (20-40); Segmented Neutrophils 86 % (50-85); Total Cells Counted 100
[2017-05-09 06:13] LABS: Burr Cells Few; Hypochromasia 1+
[2017-05-09 06:14] LABS: Acanthocytes Few; Microcytosis Slight; Platelet Estimate Decreased; Tear Drop Cells Slight
[2017-05-09 06:25] LABS: Albumin 2.8 G/DL (3.4-5.0); Bilirubin,Direct 2.28 MG/DL (0.0-0.20); Bilirubin,Indirect 1.2 MG/DL (0.0-1.0); Bilirubin,Total 3.5 MG/DL (0.2-1.0); Total Protein 5.6 G/DL (6.4-8.3)
[2017-05-09] MEDS ORDERED: METOPROLOL TARTRATE 5 MG/5 ML VIAL IV ONE (06:30)
[2017-05-09] MEDS ORDERED: CALCIUM CHLORIDE 1,000 MG/10 ML SYRINGE IV ONE (06:57)
[2017-05-09] MEDS ORDERED: CALCIUM GLUCONATE 3,000 MG in SODIUM CHLORIDE 0.9% 100 ML IV ONE (06:57)
[2017-05-09] MEDS ORDERED: PHENYLEPHRINE DRIP 40 MG/250 ML PREMIX IV SCH (07:00)
[2017-05-09] MEDS ORDERED: SODIUM CHLORIDE 0.9% 1,000 ML IV PRN (07:16)
[2017-05-09] MEDS: ARFORMOTEROL 15 MCG/2 ML NEB RESP TX SCH ×2 (07:35→20:03)
[2017-05-09] MEDS ORDERED: DEXMEDETOMIDINE 200 MCG/2 ML VIAL IV ONE (08:30)
[2017-05-09] MEDS ORDERED: MULTIVITAMIN LIQUID (CENTRUM) 60 ML BOTTLE PO SCH (09:00)
[2017-05-09] MEDS: DILTIAZEM INJ 100 MG in SODIUM CHLORIDE 0.9% 100 ML IV SCH (10:30)
[2017-05-09] MEDS ORDERED: DILTIAZEM 100 MG VIAL.ADD IV ONE (10:36)
[2017-05-09 10:58] LABS: ABG Base Excess -9.5 MMOL/L (-2.5-2.5); ABG HCO3 17.3 MMOL/L (20-26); ABG Oxygen Saturation 98.9 % (95-100); ABG PCO2 41.3 MM HG (35-48); ABG PH 7.239 (7.35-7.45); ABG PO2 285.2 MM HG (80-95); ABG TCO2 18.5 MMOL/L (23-27)
[2017-05-09] MEDS: SODIUM CHLORIDE 0.9% 1,000 ML IV SCH (11:21)
[2017-05-09] MEDS: CHLORHEXIDINE 0.12% ORAL RINSE 60 ML BOTTLE SWISH/SPIT SCH ×2 (11:22→21:09)
[2017-05-09] MEDS: PANTOPRAZOLE 40 MG VIAL IV SCH ×2 (12:19→21:00)
[2017-05-09] MEDS: methylPREDNISolone SOD SUC 40 MG/1 ML VIAL IV SCH ×2 (12:19→21:06)
[2017-05-09] MEDS: metroNIDAZOLE INJ 500 MG in PREMIX 1 EACH IV SCH ×2 (12:19→17:30)
[2017-05-09] MEDS: SODIUM BICARB INJ 100 MEQ in DEXTROSE 5% NACL 0.22% 1,000 ML IV SCH ×2 (12:20→23:29)
[2017-05-09] MEDS: PHENYLEPHRINE INJ 160 MG in SODIUM CHLORIDE 0.45% 234 ML IV SCH (12:20)
[2017-05-09] MEDS ORDERED: MICAFUNGIN 100 MG in SODIUM CHLORIDE 0.9% 100 ML IV SCH (13:00)
[2017-05-09] MEDS: FAMOTIDINE 20 MG/2 ML VIAL IV SCH (15:16)
[2017-05-09 16:44] LABS: Lactic Acid 14.3 MMOL/L (0.4-2.0)
[2017-05-09 20:42] LABS: ABG Base Excess -18.1 MMOL/L (-2.5-2.5); ABG HCO3 10.7 MMOL/L (20-26); ABG Oxygen Saturation 91.3 % (95-100); ABG PCO2 38.3 MM HG (35-48); ABG PO2 84.6 MM HG (80-95); ABG TCO2 10.9 MMOL/L (23-27)
[2017-05-09 20:44] LABS: ABG PH 7.072 (7.35-7.45)
[2017-05-10] MEDS: metroNIDAZOLE INJ 500 MG in PREMIX 1 EACH IV SCH (00:01)
[2017-05-10] MEDS: PHENYLEPHRINE INJ 160 MG in SODIUM CHLORIDE 0.45% 234 ML IV SCH (00:30)
[2017-05-10] MEDS: NOREPINEPHRINE 8 MG in SODIUM CHLORIDE 0.9% 242 ML IV SCH (00:57)
[2017-05-10] MEDS: PIPERACILLIN/TAZOBACTAM 3,375 MG in SODIUM CHLORIDE 0.9% 100 ML IV SCH (01:22)
[2017-05-10] MEDS: LACTULOSE 20 GM/30 ML UDCUP PO SCH (01:48)
[2017-05-10] MEDS: DEXMEDETOMIDINE 200 MCG in SODIUM CHLORIDE 0.9% 48 ML IV SCH (03:05)
[2017-05-10] MEDS: DILTIAZEM INJ 100 MG in SODIUM CHLORIDE 0.9% 100 ML IV SCH (03:05)
[2017-05-10] MEDS: ALBUTEROL 2.5 MG/3 ML NEB RESP TX SCH ×2 (04:21→04:22)
[2017-05-10] MEDS ORDERED: SODIUM BICARBONATE 50 MEQ/50 ML SYRINGE IV ONE (04:30)
[2017-05-10 04:54] VITALS: BP 77/37
== END 2017-05-10 04:22 | disposition expired | DRG 165 ==
LOC: EDUNIT# → EDBD → N.ED 08:21 → N.EDINP 08:21 → SUATTDRO 10:36 → N.TELEN 12:03 → SUATTDRO 04-27 09:23 → SUPCPDRO 04-27 09:23 → N.CC 04-30 14:31 → N.CVR 05-01 10:13 → N.ICU 05-03 17:36
PROVIDERS: ADMIT Hospitalist; ATTEND Internal Medicine
PROC: CLCCHCL (ICD-10-PCS; 2017-04-29 08:15)